=== PATIENT | male | born 2000 | race Caucasian/White ===

== ENCOUNTER 2023-08-20 09:01 | Emergency (ER) | payer OTHER ==
[2023-08-20 09:06] VITALS: BP 116/58; PULSE 75; RESP 20; TEMP 98.2; BMI 20.7
[2023-08-20] MEDS ORDERED: ACETAMINOPHEN 325 MG TABLET (FP) PO ONE (09:28)
[2023-08-20] MEDS ORDERED: IBUPROFEN 600 MG TABLET (FP) PO ONE ×2 (09:28→09:50)
[2023-08-20] MEDS ORDERED: ACETAMINOPHEN 325 MG TABLET (FP) ONE (09:50)
[2023-08-20 10:33] LABS: THROAT:GRP A STREP NOT DETECTED (NOTDETECTED)
== END 2023-08-20 10:37 | disposition home or self-care (01) ==
LOC: JERFT 09:01
DX: J02.9 Acute pharyngitis, unspecified (principal); R51.9 Headache, unspecified; R09.81 Nasal congestion; M79.10 Myalgia, unspecified site; B34.9 Viral infection, unspecified; U07.1 COVID-19
CPT/HCPCS: 0241U-QW; 87651; 99283-25